=== PATIENT | female | born 1945 | race Caucasian/White ===

== ENCOUNTER → 2017-06-27 | Outpatient (CLI) | payer MEDICARE ==
--- NOTE | 2017-06-28 12:37 | MM ---
Reason for exam: screening (asymptomatic). Last mammogram was performed 1 year and 1 month ago. History: Patient is postmenopausal and had first child at age 38. Family history of breast cancer in maternal grandmother at age 60. Took hormonal contraceptives for 7 years. Physical Findings: A clinical breast exam by your physician is recommended on an annual basis and results should be correlated with mammographic findings. MG 3D Screening Mammo W/Cad Bilateral CC and MLO view(s) were taken. Prior study comparison: June 05, 2016, bilateral MG 3d screening mammo w/cad. September 22, 2014, bilateral MG screening mammo w CAD. The breast tissue is heterogeneously dense. This may lower the sensitivity of mammography. Benign calcifications in the left breast. No significant changes when compared with prior studies. ASSESSMENT: Benign, BI-RAD 2 RECOMMENDATION: Routine screening mammogram of both breasts in 1 year.
== END | disposition home or self-care (01) ==
LOC: RADMAMWWP 07:38
PROVIDERS: ATTEND Family Medicine
DX: Z12.31 Encounter for screening mammogram for malignant neoplasm of breast (principal)
CPT/HCPCS: 77063; G0202

== ENCOUNTER → 2017-11-29 | Outpatient (CLI) | payer MEDICARE ==
--- NOTE | 2017-11-29 11:45 | CT ---
EXAMINATION TYPE: CT abdomen pelvis wo con DATE OF EXAM: 11/29/2017 HISTORY: hematuria, UTI CT DLP: 724 mGycm. Automated Exposure Control for Dose Reduction was Utilized. TECHNIQUE: CT scan of the abdomen and pelvis is performed without oral or IV contrast. COMPARISON: NONE FINDINGS: Within the limitations of a non-contrast study, the following observations are made. LUNG BASES: There is linear scarring or atelectasis in the left lung base. LIVER/GB: No significant abnormality is appreciated. PANCREAS: No significant abnormality is seen. SPLEEN: No significant abnormality is seen. ADRENALS: No significant abnormality is seen. KIDNEYS: No renal stones or hydronephrosis is present bilaterally. No intraluminal calculus is seen i n bladder. No suspicious bladder wall thickening is present. Occasional right pelvic phlebolith is s een. BOWEL: Somewhat low-lying cecum is seen. There is no suspicious small or large bowel dilatation. Norm al-appearing appendix is seen medially from cecum. There is somewhat tortuous course of the transvers e colon. There is suspicious area of concentric wall thickening proximal to mid transverse colon seen axial image 37 and coronal image 32 in which apple core type mass or neoplasm cannot be excluded and follow-up is advised. GENITAL ORGANS: Anteverted uterus is seen. Suspect small amount of fluid in endometrial canal seen be st axial image 64. Consider pelvic ultrasound evaluation. LYMPH NODES: No greater than 1cm abdominal or pelvic lymph nodes are appreciated. OSSEOUS STRUCTURES: Underlying scoliotic curvature is present. There is moderate to severe multilevel spurring and disc space narrowing. Findings are most prominent at right L4-L5 level where there is s clerosis identified. There is disc calcification at L5 -L6 level. There is transitional-type L6 verte bra. OTHER: There is mild calcified plaque of aorta extending into branch vessels. IMPRESSION: 1. No renal stones or hydronephrosis is seen bilaterally. No suspicious bladder wall thickening or in traluminal calculus. 2. Attention to proximal to mid transverse colon, focal area of suspicious wall thickening is identif ied, this could reflect spasm but neoplasm cannot be excluded and follow-up colonoscopy advised if pacheco s not been performed in last 3 years.
== END | disposition home or self-care (01) ==
LOC: RADCTMAIN 10:58
PROVIDERS: ATTEND Family Medicine
DX: R10.9 Unspecified abdominal pain (principal)
CPT/HCPCS: 74176

== ENCOUNTER → 2017-12-10 | Outpatient (CLI) | payer MEDICARE ==
--- NOTE | 2017-12-10 10:00 | US ---
EXAMINATION TYPE: US transvaginal DATE OF EXAM: 12/10/2017 COMPARISON: US & CT CLINICAL HISTORY: R10.2 PELVIC AND PERINEAL PAIN. abn CT TECHNIQUE: Transvaginal (TV). Date of LMP: post menopausal EXAM MEASUREMENTS: Uterus: 4.5 x 2.1 x 3.3 cm Endometrial Stripe: 0.2 cm Right Ovary: 1.9 x 1.3 x 1.1 cm Left Ovary: 2.0 x 1.2 x 1.4 cm 1. Uterus: Anteverted difficult to visualize, shadowing seen, cystic structures in NERI and cervix 2. Endometrium: Difficult to visualize, however this does appear to be within normal limits 3. Right Ovary: wnl 4. Left Ovary: wnl 5. Bilateral Adnexa: wnl 6. Posterior cul-de-sac: no free fluid IMPRESSION: Findings are likely client service representative of cystic endometrial atrophy that can occur as part o f tamoxifen and associated endometrial change. No endometrial thickening.
== END | disposition home or self-care (01) ==
LOC: RADUSWWP 09:00
PROVIDERS: ATTEND Family Medicine
DX: R10.2 Pelvic and perineal pain (principal)
CPT/HCPCS: 76830

== ENCOUNTER → 2018-08-05 | Outpatient (CLI) | payer MEDICARE ==
--- NOTE | 2018-08-09 10:11 | MM ---
Reason for exam: screening (asymptomatic). Last mammogram was performed 1 year and 1 month ago. History: Patient is postmenopausal and had first child at age 38. Family history of breast cancer in maternal grandmother at age 60. Took hormonal contraceptives for 7 years. MG 3D Screening Mammo W/Cad Bilateral CC and MLO view(s) were taken. Prior study comparison: June 27, 2017, bilateral MG 3d screening mammo w/cad. June 05, 2016, bilateral MG 3d screening mammo w/cad. The breast tissue is heterogeneously dense. This may lower the sensitivity of mammography. There are benign-appearing bilatera calcifications. No suspicious abnormality. No significant changes when compared with prior studies. ASSESSMENT: Benign, BI-RAD 2 RECOMMENDATION: Routine screening mammogram of both breasts in 1 year.
== END ==
LOC: RADMAMWWP 07:03
PROVIDERS: ATTEND Family Medicine
DX: Z12.31 Encounter for screening mammogram for malignant neoplasm of breast (principal)
CPT/HCPCS: 77063; 77067

== ENCOUNTER → 2021-03-13 | Outpatient (CLI) | payer MEDICARE ==
--- NOTE | 2021-03-14 08:24 | US ---
EXAMINATION TYPE: US pelvic complete DATE OF EXAM: 03/13/2021 COMPARISON: US and CT 2017 CLINICAL HISTORY: R10.2 PELVIC AND PERINEAL PAIN. Intermittent left pelvic pain x couple months, grav carlos manuel 3, para 2, 1 TECHNIQUE: . Transabdominal sonographic images of the pelvis were acquired. Transvaginal sonographi c images were medically necessary to better assess the following anatomy: endometrium and ovaries Date of LMP: 23 years ago EXAM MEASUREMENTS: Uterus: 5.1 x 1.9 x 3.4 cm Endometrial Stripe: 0.2 cm Right Ovary: n/a Left Ovary: 1.7 x 1.3 x 1.2 cm 1. Uterus: mildly heterogeneous 2. Endometrium: wnl 3. Right Ovary: not seen due to overlying bowel gas 4. Left Ovary: wnl 5. Bilateral Adnexa: wnl 6. Posterior cul-de-sac: wnl Anteverted somewhat small size uterus correlates with patient's postmenopausal age. No free fluid. No rmal size left ovary seen on transvaginal investigation. Right ovary not identified. No adnexal noreen s present. IMPRESSION: No suspicious findings identified.
== END | disposition home or self-care (01) ==
LOC: RADUSWWP 16:21
PROVIDERS: ATTEND Family Medicine
DX: R10.2 Pelvic and perineal pain (principal)
CPT/HCPCS: 76830; 76856

== ENCOUNTER → 2021-03-15 | Outpatient (CLI) | payer MEDICARE ==
[2021-03-15 09:59] VITALS: BP 117/56; PULSE 43; RESP 16; TEMP 98
--- NOTE | 2021-03-15 11:23 | P.PN ---
Progress Note - Text Progress Note Date: 03/15/21 Chief Complaint: Left lower quadrant abdominal and pelvic pain worsening over the past 3 months. HPI: This is a 75-year-old 012 with an LMP of 2000. The patient states she has been having a very slight left lower quadrant abdominal discomfort over the past 3 years. She did not think very much of this because it was not there he painful, but during the past 3 months she states it has gradually become more noticeable. She says that it usually is not very bad early in the day, but as the day progresses it does seem to increase. The pain is described as a dull ache and is fairly constant. It is currently rated at a 2-3 out of 10 and at the end of most days when she has been very active during the day it can be a 6- 7 out of 10. When she was seen here in 2015, she stated that she had multiple sexual partners after becoming a in 2012. We discussed the importance of limiting sexual partners at that time and she states that after that visit, she has been with the same person during the past 5 years. She states during the first 3 years of the relationship she didn't have fairly frequent urinary tract infections. During the past 2 years she says they have been practicing better hygiene including showering prior to sexual intercourse and she does void before and after sexual intercourse. She states she has not had urinary tract infections during the past 2 years after making these changes. She believes she is her boyfriend only sexual partner at this time. The left lower quadrant and pelvic discomfort does not seem to be associated with any particular activity and does not seem to interfere with sexual intercourse. She denies any postmenopausal bleeding or fever. She has noticed a slight vaginal discharge in her underwear which she describes as a pale wheat color and mucousy. She does not notice any odor or itching. ROS: She denies fever, respiratory, or GI problems. Cardiac: She has been undergoing a cardiac workup because of symptoms of fatigue and feeling tired. She does feel the need to take naps which is unusual for her. She denies any urinary symptoms. PE: Blood pressure: 117/56, Height: 5 feet 5 inches, Weight: 134 pounds, Temperature: 98.0, Pulse: 43. Pulse oximeter 97%. This is a well developed, well nourished, white female who is alert and orientedx3, in no acute distress. Abdomen: Soft and nondistended. There are 2+ bowel sounds. There is mild left lower quadrant tenderness with deep palpation. There are no palpable masses. There is no rebound tenderness. There is no tenderness in the other quadrants other than the left lower quadrant. There are no unusual bulges in the groin area with Valsalva. Pelvic exam: Normal external genitalia with mild atrophy. Vagina reveals a small amount of grayish discharge without odor. The cervix is without lesions and does not appear inflamed. The cervix and vagina do reveal mild to moderate atrophy. The uterus is atrophic, mid positioned and nongravid size. The uterus is nontender. There are no palpable right adnexal masses or tenderness. There is no left adnexal mass palpable. There is minimal left adnexal tenderness with bimanual examination. Additional studies: Pelvic ultrasound was done on 03/13/[address] Lux. This was unremarkable. There were no adnexal masses. There was no free fluid. The left ovary was visualized and was normal size and within normal limits. The endometrial stripe was 0.2 cm which is normal. Impression: 1. 75-year-old menopausal female with increasing left lower quadrant and left pelvic pain with minimal to mild tenderness on examination today. Differential diagnosis will include left adnexal pain without significant ultrasound findings and this could include mild salpingitis. We will also include left inguinal hernia or GI discomfort such as diverticulosis or constipation. 2. Recent vaginal discharge which may or may not be related to the left lower quadrant and left pelvic pain. Differential diagnosis will include Nohemy vaginitis, bacterial vaginosis, trichomonas, GC, or physiologic discharge. 3. Fatigue, feeling tired and less energetic. Plan: 1. Affirm vaginitis panel was obtained from the noticeable vaginal discharge. 2. GC and Chlamydia testing was obtained from the cervix. 3. We will obtain recent blood testing that was done last month by Dr. Lux's office. She states thyroid testing was drawn at that time. She states the blood tests were done because of her fatigue and feeling tired. 4. If there is no findings of infection with the above testing, we will consider other options such as CT scan of the abdomen and pelvis to extend the imaging and this will include bowel and intestines. We can also consider referral for laparoscopic examination. 5. She was instructed to call or go to the emergency room if she is having severe pain, high fever or problems. Time spent with the patient: 35 minutes
[2021-03-16 14:02] LABS: Gardnerella Negative (Negative); Source Cervix; Trichomonas Negative (Negative)
== END ==
LOC: WWCWWP 09:11
PROVIDERS: ATTEND Obstetrics & Gynecology
DX: R10.32 Left lower quadrant pain (principal); R10.2 Pelvic and perineal pain; N89.8 Other specified noninflammatory disorders of vagina; R53.83 Other fatigue; Z88.2 Allergy status to sulfonamides
CPT/HCPCS: 87480; 87491; 87510; 87591; 87660

== ENCOUNTER → 2021-03-21 | Outpatient (CLI) | payer MEDICARE ==
[2021-03-21 14:48] LABS: Appearance,Urine Clear (Clear); Bacteria,Urine Rare /hpf; Bilirubin,Urine Negative (Negative); Blood,Urine Negative (Negative); Color,Urine Yellow; Glucose,Urine (UA) Negative (Negative); Ketones,Urine Negative (Negative); Leukocyte Esterase,Urine Large (Negative); Nitrite,Urine Negative (Negative); PH, Urine 5.5 (5.0-8.0); Protein,Urine Negative (Negative); RBC,Urine 2 /hpf (0-5); Squamous Epithelial Cell,Urine <1 /hpf (0-4); Urobilinogen,Urine <2.0 mg/dL (<2.0); WBC,Urine 25 /hpf (0-5)
[2021-03-22 16:40] LABS: African American GFR (CKD) 99.6 (60.0-200.0)
== END | disposition home or self-care (01) ==
LOC: LABWHC1 14:19
PROVIDERS: ATTEND Obstetrics & Gynecology
DX: R10.32 Left lower quadrant pain (principal); R10.2 Pelvic and perineal pain
CPT/HCPCS: 36415; 81001; 82565; 84520; 87086

== ENCOUNTER → 2021-03-22 | Outpatient (CLI) | payer MEDICARE ==
[2021-03-22 11:47] LABS: African American GFR (CKD) >90 (>60 ml/min/1.73 sqM); Blood Urea Nitrogen 12 mg/dL (7-17); Non-African American GFR(CKD) >90 (>60 ml/min/1.73 sqM)
--- NOTE | 2021-03-22 13:41 | CT ---
EXAMINATION TYPE: CT abdomen pelvis w con DATE OF EXAM: 03/22/2021 COMPARISON: 11/29/2017 HISTORY: 75-year-old female LLQ pain for months. TECHNIQUE: Contiguous axial scanning of the abdomen and pelvis following administration of 100 ml Iso desi 300 IV contrast. Delayed images through the kidneys and coronal/sagittal reconstructions perform ed. CT DLP: 404.7 mGycm Automated exposure control for dose reduction was used. FINDINGS: Heart upper limits of normal in size without pericardial effusion. Strandy atelectasis or scarring at the lateral basal right lobe. Also in the inferior lingula. No pleural effusion. Liver mildly enlarged at 18.8 cm. No focal liver lesion or biliary ductal dilatation. Portal venous s ystem is patent. Gallbladder, kidneys, right adrenal gland, spleen, and pancreas within normal limits. 1 cm nodule left adrenal gland appears to have been present in 2012 suggesting a benign adrenal adeno ma. No dilated small bowel, free fluid, or free air. Numerous mid abdominal mesenteric lymph nodes which are nonenlarged and borderline enlarged measuring up to 8 mm short axis. No dilated small bowel, free fluid, or free air. Oral contrast progressed to the lower descending col on. No significant stool burden. There is lower ending in proximal to mid sigmoid diverticulosis. Alicia ble to exclude mild pericolonic fat stranding along the proximal sigmoid colon, axial image 58 versus prominent pericolonic vessels. No significant wall thickening seen here. Bladder is urine distended. Uterus is anteverted. Prominent left periuterine varices and asymmetric d istention of the left gonadal vein. No abnormal fluid collection in the pelvis or pelvic lymphadenopa thy. Both ovaries are visualized. Bones: Mild degenerative change at the hips and pubic symphysis as well as the right SI joint. Advanc ed spondylotic change mid to lower lumbar spine with Baastrup's disease grade 1 anterolisthesis L2-L3 . Disc ossified complex and ligamentum flavum thickening L1-L2 causes at least mild spinal canal sten osis. Additional mild spinal canal stenoses at L3-L4 and L4-L5. IMPRESSION: 1. PROMINENT LEFT PARAUTERINE VARICES WITH ASYMMETRIC DISTENTION OF THE LEFT GONADAL VEIN. 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 CLINICALLY CORRELATE. 2. LOWER DESCENDING AND PROXIMAL TO MID SIGMOID DIVERTICULOSIS. THERE IS MILD FAT STRANDING ADJACENT TO THE PROXIMAL SIGMOID COLON FAVORED TO REPRESENT PROMINENT PERICOLONIC VESSELS RATHER THAN MILD INF LAMMATION THERE IS NO ABNORMAL WALL THICKENING. CLINICALLY CORRELATE FOR ANY POTENTIAL SYMPTOMS OF MILD ACUTE DIVERTICULITIS.
--- NOTE | 2021-03-22 14:12 | P.PN ---
Progress Note - Text Progress Note Date: 03/22/21 OUTPATIENT FOLLOW-UP NOTE TEST(S)/RESULTS: CT scan of the abdomen and pelvis done on 03/22/2021 shows left periuterine varices possibly consistent with pelvic congestion syndrome. Also lower descending to mid sigmoid diverticulosis is noted. There is no abnormal wall thickening. Urinalysis shows large leukocyte esterase and 25 WBCs. METHOD OF NOTIFICATION: The patient was notified by phone. PATIENT COMMENTS: DIAGNOSIS: Cystitis UTI. Nonspecific findings on CT scan as above. DISCUSSION: She will be treated with Macrobid 1 by mouth twice a day 7 days. We will await the urine culture with sensitivities. We will see how her left pelvic discomfort is after treatment. I have recommended that she abstain from intercourse at this time. PLAN: As above.
== END | disposition home or self-care (01) ==
LOC: RADCTMAIN 09:41
PROVIDERS: ATTEND Obstetrics & Gynecology
DX: K63.89 Other specified diseases of intestine (principal); K57.30 Diverticulosis of large intestine without perforation or abscess without bleeding; N32.89 Other specified disorders of bladder; R16.0 Hepatomegaly, not elsewhere classified
CPT/HCPCS: 82565; 84520; 74177; 36415; Q9967

== ENCOUNTER → 2021-11-08 | Outpatient (CLI) | payer MEDICARE ==
--- NOTE | 2021-11-08 12:02 | US ---
EXAMINATION TYPE: US abdomen limited DATE OF EXAM: 11/08/2021 COMPARISON: CT CLINICAL HISTORY: K43.9 VENTRAL HERNIA WITHOUT OBSTRUCTION. Pt states feeling a "bulge" left lower AB D x many months Assess for hernia at location of: Midline to left abdominal wall Lower ABD from midline to left and midline to right scanned. In area of pt's concern for bulge, no abnormality could be appreciated. Valsalva maneuver performed in multiple images, no abnormality/ ab dominal wall "break" visualized to suggest hernia IMPRESSION: No ultrasound evidence of abdominal wall hernia. Real-time scanning was performed by the biztalk software developer utilizing Valsalva and additional dynamic maneuve rs to assess for hernia. Images of the contralateral side were also acquired for direct comparison.
== END | disposition home or self-care (01) ==
LOC: RADUSWWP 11:15
PROVIDERS: ATTEND Family Medicine
DX: K43.9 Ventral hernia without obstruction or gangrene (principal)
CPT/HCPCS: 76705

== ENCOUNTER → 2021-11-16 | Outpatient (CLI) | payer MEDICARE ==
[2021-11-16 14:37] LABS: Basophils # (A) 0.03 X 10*3/uL (0.00-0.10); Basophils % (A) 0.5 %; Eosinophils % (A) 1.8 %; HCT 41.1 % (37.2-46.3); HGB 13.5 g/dL (12.0-15.0); Immature Grans, Automated 0.4 %; Lymphocytes # (A) 1.22 X 10*3/uL (0.90-5.00); Lymphocytes % (A) 22.3 %; MCH 29.6 pg (27.0-32.0); MCHC 32.8 g/dL (32.0-37.0); MCV 90.1 fL (80.0-97.0); Mean Platelet Volume 10.8 fL (9.5-12.2); Monocytes # (A) 0.51 X 10*3/uL (0.20-1.00); Monocytes % (A) 9.3 %; NRBC Per 100 WBC 0 /100 WBCS (0.0-0.0); Neutrophils # (A) 3.59 X 10*3/uL (1.80-7.70); Neutrophils % (A) 65.7 %; Platelet Count 208 X 10*3/uL (140-440); RBC 4.56 X 10*6/uL (4.10-5.20); RDW 13.1 % (11.5-14.5); WBC 5.47 X 10*3/uL (4.50-10.00)
[2021-11-16 16:50] LABS: ALT 33 U/L (8-44); AST 33 U/L (13-35); African American GFR (CKD) 101.3 (60.0-200.0); Albumin 4.6 g/dL (3.8-4.9); Alkaline Phosphatase 76 U/L (41-126); BUN/Creat Ratio 11.87 Ratio (12.00-20.00); Blood Urea Nitrogen 7.7 mg/dL (9.0-27.0); Calcium 9.5 mg/dL (8.7-10.3); Carbon Dioxide 24.8 mmol/L (20.0-27.5); Chloride 104 mmol/L (96-109); Creatine Kinase 111 U/L (26-186); Globulin 2.4 g/dL (1.6-3.3); Glucose 99 mg/dL (70-110); Magnesium 1.9 mg/dL (1.5-2.4); Non-African American GFR(CKD) 87.4 (60.0-200.0); Potassium 4.4 mmol/L (3.5-5.5); Sodium 140 mmol/L (135-145); Total Protein 7.1 g/dL (6.2-8.2); VLDL Calculation 16.62 mg/dL (5.00-40.00)
== END | disposition home or self-care (01) ==
LOC: LABWHC1 07:52
PROVIDERS: ATTEND Nurse Practitioner Adult Health
DX: I10 Essential (primary) hypertension (principal); I47.1 Supraventricular tachycardia; E78.5 Hyperlipidemia, unspecified
CPT/HCPCS: 36415; 80053; 80061; 82550; 83036; 83735; 84439; 84443; 85025

== ENCOUNTER → 2021-12-19 | Outpatient (CLI) | payer MEDICARE ==
--- NOTE | 2021-12-22 13:15 | MM ---
Reason for Exam: Screening (asymptomatic). Last mammogram was performed 2 year(s) and 4 month(s) ago. Patient History: Menarche at age 15. First Full-Term at age 34. Late child-bearing (after 30). Postmenopausal. Patient used Hormonal Contraceptives for 7 years. Maternal grandmother had breast cancer, age 60. Risk Values: Lashawn 5 year model risk: 2.4%. NCI Lifetime model risk: 5.6%. Film Views: Bilateral CC views were taken. Bilateral MLO views were taken. Prior Study Comparison: 06/05/2016 Bilateral Screening Mammogram, [facility]. 06/27/2017 Bilateral Screening Mammogram, [facility]. 08/05/2018 Bilateral Screening Mammogram, [facility]. 08/20/2019 Bilateral MG 3D screening mammo w/cad, [facility]. Tissue Density: The breast tissue is heterogeneously dense. This may lower the sensitivity of mammography. Findings: Analyzed By CAD. Some scattered benign-appearing round calcifications bilaterally are redemonstrated. Benign-appearing vascular calcifications in the right breast is again seen anteriorly. There is no suspicious group of microcalcifications or new suspicious mass in either breast. Overall Assessment: Benign, BI-RAD 2 Management: Screening Mammogram of both breasts in 1 year. A clinical breast exam by your physician is recommended on an annual basis and results should be correlated with mammographic findings. Electronically signed and approved by: Tanner Araiza M.D.
== END | disposition home or self-care (01) ==
LOC: RADMAMWWP 12:53
PROVIDERS: ATTEND Family Medicine
DX: Z12.31 Encounter for screening mammogram for malignant neoplasm of breast (principal); Z78.0 Asymptomatic menopausal state; Z80.3 Family history of malignant neoplasm of breast
CPT/HCPCS: 77063; 77067

== ENCOUNTER 2022-04-05 13:41 | Day surgery (SDC) | payer MEDICARE ==
[2022-04-04 13:43] VITALS: BMI 21.8
[2022-04-05] MEDS ORDERED: SODIUM CHLORIDE 0.9% 1,000 ML IV ONE (14:21)
[2022-04-05] MEDS ORDERED: NITROGLYCERIN OINT 1 INCH/GM PACKET TOPICAL ONE ×3 (16:44→17:57)
[2022-04-05] MEDS ORDERED: HYDROmorphone (PF) 1 MG/ML ONE (16:44)
[2022-04-05] MEDS ORDERED: MIDAZOLAM 2 MG/2 ML VIAL ONE (16:44)
[2022-04-05] MEDS ORDERED: fentaNYL (PF) 50 MCG/ML 2 ML AMP ONE (16:44)
[2022-04-05] MEDS ORDERED: ATROPINE SULFATE 0.1 MG/ML 10ML SYRINGE ONE (16:44)
[2022-04-05] MEDS ORDERED: PROPOFOL 10 MG/ML 20 ML VIAL IV ONE (16:44)
--- NOTE | 2022-04-05 16:49 | P.HPCAR ---
History of Present Illness This is Dr. Law dictating an H/P on this patient The patient was interviewed and examined IMPRESSION / ASSESSMENT: Symptomatic paroxysmal atrial fibrillation, drug refractory Recurrent palpitations Severe sinus bradycardia with heart rates down to the 20s Mild response to hyoscyamine PLAN: Pulmonary vein isolation/cryoablation of the pulmonary veins SVC ablation Left atrial septal ablation HPI Patient continues to complain of palpitations off and on she also complains of tightness. He has severe bradycardia TSH is normal she has no exacerbating factors OK and hypertension is well controlled She has dyslipidemia and is on statins ROS: No fever chills or rigors, no cough, phlegm or expectoration, no nausea, vomiting or diarrhea, no hematuria, dysuria, no musculoskeletal complaints, no strokes or seizures, no skin lesions. EXAMINATION: Afebrile, pulse rate 49 beats a minute Blood pressure 136/67 mmHg Breath sounds are clear no rhonchi no crackles Heart sounds are normal REVIEW OF LABS, ECG & MEDICAL DATA Atorvastatin, losartan and ELIQUIS and hyoscyamine Physical Exam Vitals: Vital Signs Temp Pulse Resp BP Pulse Ox 04/05/22 14:35 98.1 F 49 L 16 136/67 99 Intake and Output 04/05/22 04/05/22 04/05/22 06:59 14:59 22:59 Intake Total 400 Balance 400 Intake: IV 400 Other: Weight 58.3 kg Past Medical History Past Medical History: Hypertension Additional Past Medical History / Comment(s): SEE DR LAW'S HISTORY AND PHYSICAL FOR CARDIAC HISTORY,SLOW HEART RATE AT NIGHT History of Any Multi-Drug Resistant Organisms: None Reported Past Surgical History: Tonsillectomy Additional Past Surgical History / Comment(s): ARTHROSCOPIC RIGHT KNEE, COIL INSERTED INTO VEIN IN LEFT GROIN AREA AT [facility] Past Anesthesia/Blood Transfusion Reactions: No Reported Reaction Smoking Status: Never smoker - Past Family History Mother Family Medical History: No Reported History Physical Examination Vital Signs Temp Pulse Resp BP Pulse Ox 04/05/22 14:35 98.1 F 49 L 16 136/67 99 Intake and Output 04/05/22 04/05/22 04/05/22 06:59 14:59 22:59 Intake Total 400 Balance 400 Intake: IV 400 Other: Weight 58.3 kg Results Current Medications Generic Name Dose Route Start Last Admin Trade Name Freq PRN Reason Stop Dose Admin Sodium Chloride 1,000 mls @ 20 mls/hr 04/05/22 05:58 Saline 0.9% IV 05/05/22 05:59 .Q24H LAURA Intake and Output 04/05/22 04/05/22 04/05/22 06:59 14:59 22:59 Intake Total 400 Balance 400 Intake: IV 400 Other: Weight 58.3 kg Patient Weight 04/06/22 06:59 Weight 58.3 kg
[2022-04-05] MEDS ORDERED: LIDOCAINE 1% INJ 10MG/ML (30 ML VIAL-PF) SQ ONE (17:28)
[2022-04-05] MEDS ORDERED: HEPARIN SODIUM (1,000 UNIT/ML) 1,000 UNIT in SODIUM CHLORIDE 0.9% 1,000 ML IRRIGATION ONE (18:00)
[2022-04-05] MEDS ORDERED: ACETAMINOPHEN TAB 325 MG TAB PO PRN (19:51)
--- NOTE | 2022-04-05 19:58 | P.PRLE ---
RE: Orlando Sanabria Dear Leonarod Sanabria underwent a diagnostic EP study which revealed 1. Severe resting bradycardia while sleeping and she underwent successful ablation to address this At the end of the procedure her heart rate in deep sedation is 56 beats a minute The procedure. Documented heart rates of 20 beats a minute during sleep 2. Focal source of atrial fibrillation in the low lateral right atrial wall Successful ablation for this 3. Focal atrial tachycardia arising deep from the lower lateral tricuspid annulus This was a deep focus within the tricuspid annulus and she underwent successful ablation for this She does have PACs atrial couplets and triplets that are left over from the source since this was deep inside the valve tissue She will continue ELIQUIS for about 12 weeks and then she may stop it completely Thank you for entrusting me with the care of the patient Warm regards Sincerely Clement Law
--- NOTE | 2022-04-05 20:07 | P.EPPROC ---
- EP Procedure Note Electrophysiology Procedure Note: Diagnosis Paroxysms of atrial fibrillation symptomatic Paroxysms of atrial tachycardia Severe bradycardia in the 20s while sleeping Procedure Diagnostic EP study and successful ablation of 1. Focal source of atrial fibrillation in the lower lateral right atrial free wall 2. focal atrial tachycardia ablation in the lower lateral tricuspid annular tissue, 8 o'clock position 3. Successful ablation on the septal aspect of the SVC RA junction Patient was brought to the EP lab in a fasting state Written informed consent was obtained prior to the procedure IV atropine was administered, 2 mg Sinus rates were documented GA interval improved from 186-168 ms Atrial tachycardia became more prominent Pacing was performed from the high right atrium the coronary sinus and the right ventricle She will repeatedly go into an atrial tachycardia, slow atrial tachycardia that had a W-shaped P wave configuration in lead V1 This is consistent with an anterior right atrial tachycardia likely on the tricuspid annulus Inferior leads showed P waves that were flat to slightly negative Diagnoses EP study with stimulation from the high right atrium and coronary sinus Mapping of the His bundle area 3-D electro-anatomic mapping was performed The SVC/RA junction was targeted for ablation Fractionated electrograms were sought RF ablation was performed with good contact force and power At the end of the procedure during deep sleep, heart rates were 56 beats a minute Focal atrial tachycardia was mapped to the 8 o'clock position in the low lateral tricuspid annulus tissue This could be suppressed with deep pressure with contact force is above 40 g in the tricuspid area RF ablation was performed at the earliest site with deep negative unipolar signals Residual PACs atrial couplets and triplets from this site remained since this was a deep focus within the tricuspid annular tissue During mapping it is also evident that there was a focal source of atrial fibrillation in the low lateral right atrium RF ablation was applied in this region and thereafter atrial fibrillation could not be induced Intracardiac echo at the end of the procedure did not reveal any effusion Catheters were removed and Vascade closure applied successfully Patient tolerated the procedure well without any acute complications In a deeply sedated state at the end of the procedure, heart heart rate is 56 beats a minute, sinus mechanism
[2022-04-05] MEDS: SODIUM CHLORIDE 0.9% 1,000 ML IV SCH (20:38)
[2022-04-05] MEDS ORDERED: ATORVASTATIN 20 MG TAB PO SCH (21:00)
[2022-04-05] MEDS ORDERED: ACETAMINOPHEN IV (For NPO) 1,000 MG in EMPTY BAG 1 BAG IVPB ONE (21:00)
[2022-04-05 21:03] VITALS: RESP 18
[2022-04-05] MEDS: APIXABAN 5 MG TAB PO SCH (21:11)
--- NOTE | 2022-04-06 07:59 | P.DS ---
Providers Date of admission: 04/05/22 19:30 Attending physician: Clement Law Primary care physician: Leonardo Hernandez [facility] Course: Patient is doing very well No dizziness lightheadedness chest pain She is ambulating around the room Groins of healed well Heart sounds are normal no rub or gallop Breath sounds are clear No JVD Impression Focal atrial tachycardia tricuspid annulus 8 o'clock position successful ablation Focal source of atrial fibrillation low lateral right atrial wall him a status post successful ablation SVC/RA junction, ablation successful The lowest heart rate at night was 42 beats a minute Plan Continue ELIQUIS but since we did not perform the standard AF ablation, 6 weeks would be adequate Hold hyoscyamine for now Follow-up in one week Patient Condition at Discharge: Stable Plan - Discharge Summary Discharge Rx Participant: No New Discharge Prescriptions: No Action Latanoprost/Pf [Latanoprost 0.005% Eye Drop] 1 drop BOTH EYES HS RX: Losartan Potassium 100 mg PO DAILY Atorvastatin [Lipitor] 20 mg PO HS Apixaban [Eliquis] 5 mg PO BID Hyoscyamine Sulfate [Hyoscyamine Sulfate ER] 0.375 mg PO HS Discharge Medication List Atorvastatin [Lipitor] 20 mg PO HS 03/15/21 [History] RX: Losartan Potassium 100 mg PO DAILY 03/15/21 [History] Apixaban [Eliquis] 5 mg PO BID 04/04/22 [History] Latanoprost/Pf [Latanoprost 0.005% Eye Drop] 1 drop BOTH EYES HS 04/04/22 [History] Hyoscyamine Sulfate [Hyoscyamine Sulfate ER] 0.375 mg PO HS 04/05/22 [History]
[2022-04-06] MEDS: APIXABAN 5 MG TAB PO SCH (08:12)
[2022-04-06] MEDS: SODIUM CHLORIDE 0.9% 1,000 ML IV SCH (08:14)
[2022-04-06] MEDS ORDERED: LOSARTAN 50 MG TAB PO SCH (09:00)
[2022-04-06] MEDS ORDERED: COLCHICINE 0.6 MG EACH PO SCH (09:00)
[2022-04-06 09:39] VITALS: BP 129/61; PULSE 47; TEMP 97.8
== END 2022-04-06 10:23 | disposition home or self-care (01) ==
LOC: CATHEP 13:41 → 6NMEDSUR 19:30 → UNDOADMOB 19:30 → UNDODISOB 04-06 10:23 → CATHEP 04-06 10:23
PROVIDERS: ATTEND Internal Medicine Clinical Cardiac Electrophysiology
DX: I47.1 Supraventricular tachycardia (principal); I48.0 Paroxysmal atrial fibrillation; I10 Essential (primary) hypertension; I49.5 Sick sinus syndrome; E78.5 Hyperlipidemia, unspecified; Z20.822 Contact with and (suspected) exposure to COVID-19; T44.3X5A Adverse effect of other parasympatholytics [anticholinergics and antimuscarinics] and spasmolytics, initial encounter; Z98.890 Other specified postprocedural states
CPT/HCPCS: 93623; 93662; 93653; 87635; C1894; C1769 ×3; C1760; C1730 ×3; C1759; C1732; J2250; J2001; J0461; J3010; J1644; J1170; J0131; J2704; 93655; 93656; 93657

== ENCOUNTER → 2022-06-06 | Outpatient (CLI) | payer MEDICARE ==
--- NOTE | 2022-06-06 12:59 | US ---
EXAMINATION TYPE: US carotid duplex BILAT DATE OF EXAM: 06/06/2022 COMPARISON: NONE CLINICAL HISTORY: R09.89 bruit. TECHNIQUE: Carotid duplex ultrasound examination. Indirect Doppler criteria was utilized. FINDINGS: EXAM MEASUREMENTS: RIGHT: Peak Systolic Velocity (PSV) cm/sec ----- Right CCA: 70.8 ----- Right ICA: 79.3 ----- Right ECA: 75.8 ICA/CCA ratio: 1.1 RIGHT: End Diastole cm/sec ----- Right CCA: 18.8 ----- Right ICA: 24.8 ----- Right ECA: 10.6 LEFT: Peak Systolic Velocity (PSV) cm/sec ----- Left CCA: 85.8 ----- Left ICA: 67.0 ----- Left ECA: 99.5 ICA/CCA ratio: 0.8 LEFT: End Diastole cm/sec ----- Left CCA: 18.2 ----- Left ICA: 26.8 ----- Left ECA: 16.1 VERTEBRALS (direction of flow): Right Vertebral: Antegrade Left Vertebral: Antegrade Rhythm: Normal Grayscale images show no significant focal plaque at carotid bulb level. IMPRESSION: No hemodynamically significant stenosis in either internal carotid artery. Criteria for Assigning % of Stenosis / Diameter reduction (Estimation based on the indirect measurements of the internal carotid artery velocities (ICA PSV). 1. Normal (no stenosis)=ICA PSV < 125 cm/s: ratio < 2.0: ICA EDV<40 cm/s. 2. Less than 50% stenosis=ICA PSV < 125 cm/s: ratio < 2.0: ICA EDV<40 cm/s. 3. 50 to 69% stenosis=ICA PSV of 125 to 230 cm/s: ration 2.0 ? 4.0: ICA EDV 40-100 cm/s. 4. Greater than 70% stenosis to near occlusion= ICA PSV > 230 cm/s: ratio > 4.0: ICA EDV > 100 cm/s. 5. Near occlusion= ICA PSV velocities may be low or undetectable: variable ratio and ICA EDV. 6. Total occlusion=unable to detect flow.
== END | disposition home or self-care (01) ==
LOC: RADUSWWP 12:21
PROVIDERS: ATTEND Family Medicine
DX: R09.89 Other specified symptoms and signs involving the circulatory and respiratory systems (principal)
CPT/HCPCS: 93880

== ENCOUNTER 2023-12-02 13:56 | Day surgery (SDC) | payer MEDICARE ==
[2023-11-28 10:52] VITALS: BMI 22.1
[2023-12-02] MEDS: SODIUM CHLORIDE 0.9% 1,000 ML IV SCH (14:30)
[2023-12-02 14:32] VITALS: RESP 18
[2023-12-02] MEDS: SODIUM CHLORIDE 0.9% 500 ML 500 ML IV ONE ×2 (15:15→15:27)
[2023-12-02] MEDS ORDERED: LIDOCAINE 1% INJ 10MG/ML (20 ML MDV) ONE (15:34)
[2023-12-02] MEDS: LIDOCAINE 1% INJ 10MG/ML (20 ML MDV) SQ ONE (15:41)
--- NOTE | 2023-12-02 15:50 | P.EPPROC ---
- EP Procedure Note Electrophysiology Procedure Note: Loop monitor implant Primary physicians: Dr. Lux Distribution Center Manager: Dr. Law Indication: Sick sinus syndrome sinus pauses and recurrent PAT, evaluate for atrial fibrillation Patient was brought to the EP lab in a fasting state. Written informed consent was obtained prior to the procedure. The left pectoral area was prepped and draped per protocol. Intravenous antibiotic was administered preoperatively. A subcutaneous Loop monitor was implanted successfully and the wound was closed per protocol. The device was programmed to detect significant ifeanyi- arrhythmic and tachy-arrhythmic events, per protocol. Device and programming details: A-fib detection programming
--- NOTE | 2023-12-02 15:55 | P.PN ---
Progress Note - Text Dr. Law dictating on Mrs. Daniele Sanabria came in for implantation of a loop monitor today. She underwent successful implantation for reveal monitor. However her blood pressure was high and she brought in her home blood pressure readings which are also high however her blood pressure was high and she brought in her home blood pressure readings which are also high She is currently on losartan 100 mg p.o. daily and was recently started on amlodipine by Dr. Lux possibly 2.5 mg p.o. daily Plan I will send the following labs Serum metanephrines Free, serum aldosterone levels, plasma renin activity, calculate the ARR Serum cortisol and TSH levels and a BMP I will ask her to increase the dose of amlodipine to 5 mg p.o. daily and increase the dose of losartan to 150 mg daily, 1 in the morning 1 in the evening We will reevaluate her again in about 3 weeks or so If her blood pressure remains consistently elevated renal artery Dopplers will also be evaluated
[2023-12-02 16:51] VITALS: BP 198/87; PULSE 43
== END 2023-12-02 16:45 | disposition home or self-care (01) ==
LOC: CATHEP 13:56
PROVIDERS: ATTEND Internal Medicine Clinical Cardiac Electrophysiology
DX: I49.5 Sick sinus syndrome (principal); R55 Syncope and collapse; I48.91 Unspecified atrial fibrillation; E78.5 Hyperlipidemia, unspecified; I10 Essential (primary) hypertension; Z79.899 Other long term (current) drug therapy; Z88.2 Allergy status to sulfonamides; Z82.3 Family history of stroke
CPT/HCPCS: 33285; 82533; 84443; J0690; J2001

== ENCOUNTER → 2023-12-24 | Outpatient (CLI) | payer MEDICARE ==
[2023-12-24 20:00] LABS: Blood Urea Nitrogen 14.2 mg/dL (9.0-27.0); Carbon Dioxide 27.5 mmol/L (21.6-31.8); Chloride 101 mmol/L (96-109); Potassium 4.2 mmol/L (3.5-5.5); Sodium 140 mmol/L (135-145)
[2023-12-24 20:10] LABS: HCT 40.2 % (37.2-46.3); HGB 13.6 g/dL (12.0-15.0); MCH 30.2 pg (27.0-32.0); MCHC 33.8 g/dL (32.0-37.0); MCV 89.3 FL (80.0-97.0); Mean Platelet Volume 10.7 FL (9.5-12.2); NRBC Per 100 WBC 0 X 10*3/uL (0.00-0.01); Platelet Count 230 X 10*3/uL (140-440); WBC 6.81 X 10*3/uL (4.50-10.00)
== END | disposition home or self-care (01) ==
LOC: LABPAT 14:21
PROVIDERS: ATTEND Internal Medicine Clinical Cardiac Electrophysiology
DX: Z01.812 Encounter for preprocedural laboratory examination (principal)
CPT/HCPCS: 36415; 80051; 82565; 84520; 85027

== ENCOUNTER 2023-12-30 11:34 | Day surgery (SDC) | payer MEDICARE ==
[~2023-12-30 11:34] MED LIST: ceFAZolin 1 GM in SODIUM CHLORIDE 0.9% IRRIG BTL 250 ML IRRIGATION PRN
[2023-12-30] MEDS: SODIUM CHLORIDE 0.9% 500 ML 500 ML IV ONE (11:53)
[2023-12-30] MEDS ORDERED: LIDOCAINE 1% INJ 10MG/ML (20 ML MDV) ONE (14:54)
[2023-12-30] MEDS ORDERED: hydrALAZINE HCL 20 MG/ML 1 ML VIAL ONE (16:55)
[2023-12-30] MEDS ORDERED: MIDAZOLAM 2 MG/2 ML VIAL ONE (16:55)
[2023-12-30] MEDS ORDERED: fentaNYL (PF) 50 MCG/ML 2 ML AMP ONE (16:55)
[2023-12-30] MEDS: IOPAMIDOL-370 100ML BTL INJ ONE (17:12)
[2023-12-30] MEDS: LIDOCAINE 1% INJ 10MG/ML (20 ML MDV) SQ ONE (17:39)
[2023-12-30] MEDS: LIDOCAINE 1%-EPI 1:100,000 20 ML VIAL SQ ONE (17:48)
[2023-12-30] MEDS ORDERED: ACETAMINOPHEN TAB 325 MG TAB PO PRN (18:55)
--- NOTE | 2023-12-30 18:58 | P.EPPROC ---
- EP Procedure Note Electrophysiology Procedure Note: Diagnosis Symptomatic bradycardia, unprovoked, no triggering factors Sick sinus syndrome Procedure Dual-chamber pacemaker implantation with conduction system pacing (left bundle pacing) Left upper extremity venogram Details Patient was brought to the EP lab in a fasting state. Written informed consent was obtained prior to the procedure. Conscious sedation provided by YOKE [employer]TER. IV antibiotics administered. Local anesthesia administered. A 4 cm incision made in the pectoral area. Subfascial pocket made. Venous accesses obtained Venous sheaths placed. Leads placed in the right heart. 2 sets of pacing cables were used; one for backup temporary pacing and the other for assessment of current of injury and signal analysis. A 52 cm atrial pacing lead was first positioned in the RV apex for temporary pacing during mapping and conduction system pacing Thresholds were interrogated and backup high output pacing was provided This atrial lead was then removed from the right ventricle and later positioned in the right atrial appendage and the permanent lead A deflected sheath was prepped. A coronary sinus decapolar catheter was placed within this sheath. The catheter along with the sheath was then passed into the right heart, the catheter was prolapsed across the tricuspid valve, into the right ventricle and then further into the right ventricular outflow tract across the pulmonic valve into the pulmonary artery. This sheath was slid over this decapolar catheter into the RVOT. Thereafter the catheter last sheath assembly was withdrawn from the RVOT along the septum to the mid septal area. The sheath was appropriately to to map the right ventricular aspect of the septum. The decapolar catheter was withdrawn, the sheath flushed again and the screw-in pacing lead placed within the sheath. Further detailed unipolar pace-mapping of the septum was performed and once the appropriate based morphology was obtained on lead V1, the lead was screwed into the septum. The lead was screwed in 4-5 returns at a time while monitoring the current of injury, the pacing impedance changes and the paced QRS morphology. The stimulus to peak of V6 QRS was measured at each step. Once a QR or rSR pattern of paced QRS in lead V1 was obtained, a left bundle signal was sought. Impedance was measured and thresholds were measured. An impedance drop of 100-200 ohms but above 550 ohms was targeted along with an unchanged vector of the current of injury signal. The final positioning was based on the QRS morphology in lead V1 and a short stimulus to peak of the V6 QRS of less than 90 ms. The sheath was withdrawn, stability of the pacing lead deep in the septum was confirmed on POLLARD and GREENLANDIC views and the sheath was slipped and an adequate heel was provided for the lead. Unipolar and bipolar electrogram morphology obtained Atrial lead positioned in the right atrial appendage. 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 MADELEINE XT DR MRI pacemaker dual-chamber Dual-chamber pacemaker device connected to the leads and placed in the subfascial pocket Patient tolerated the procedure well without acute complications Pacemaker programming [id number], LV-RV offset 80 ms 50-130 bpm
--- NOTE | 2023-12-30 19:07 | P.EPPROC ---
- EP Procedure Note Electrophysiology Procedure Note: Procedure: Loop explant under sedation and local anesthesia. Diagnosis: Loop monitor removed at the time of pacemaker implantation Patient was brought to the EP lab in a fasting state. Written informed consent was obtained prior to the procedure. The subcutaneous device was successfully explanted under local anesthesia. Preoperative antibiotics were administered. The wound was closed in layers and dressed per protocol. Result: Successful loop monitor explantation.
[2023-12-30] MEDS: amLODIPine 5 MG TAB PO SCH (20:55)
[2023-12-30] MEDS: ATORVASTATIN 20 MG TAB PO SCH (20:55)
[2023-12-30] MEDS: TIMOLOL 0.5% OPHTH DROPS 5 ML BTL BOTH EYES SCH (20:56)
[2023-12-30] MEDS: METOPROLOL SUCCINATE (ER) 50 MG TAB.ER.24H PO SCH (20:56)
[2023-12-30] MEDS: SODIUM CHLORIDE 0.9% 1,000 ML IV SCH (21:01)
[2023-12-31] MEDS: ACETAMINOPHEN IV (For NPO) 1,000 MG in EMPTY BAG 1 BAG IVPB ONE (05:52)
[2023-12-31 07:25] VITALS: BP 172/87; PULSE 58; RESP 16; TEMP 97.6
--- NOTE | 2023-12-31 07:49 | XR ---
EXAMINATION TYPE: XR chest 2V DATE OF EXAM: 12/31/2023 COMPARISON: None HISTORY: 78-year-old female leak placement check TECHNIQUE: Frontal and lateral views FINDINGS: Left anterior chest wall pacemaker generator with right atrial and ventricular leads. Heart normal si ze. Pulmonary vasculature within normal limits. No consolidation or pleural effusion. No appreciable pneumothorax. Embolization coils projecting at the mid abdomen on the lateral view. IMPRESSION: Right atrial and right ventricular leads with left anterior chest wall pacemaker generator. No apprec iable pneumothorax.
[2023-12-31] MEDS: LOSARTAN 50 MG TAB PO SCH (08:29)
--- NOTE | 2023-12-31 12:36 | P.DS ---
Providers Attending physician: Clement Law Primary care physician: [facility] Course: Patient is doing well following dual-chamber pacemaker with conduction system pacing with left bundle pacing for sick sinus syndrome and AV node disease Pacemaker site is healed well The loop monitor was explanted Lungs are clear no rhonchi no crackles Heart sounds S1-S2 normal Breath sounds are clear Blood pressure 127/78 mmHg pulse rate in the 50s and 60s The pacemaker interrogation was within normal limits Chest x-ray was within normal limits Impression Hypertension with elevated blood pressure readings intermittently Atrial tachycardia History of atrial fibrillation Sick sinus syndrome History of AV node disease Plan Losartan 150 mg p.o. daily in the morning Increase amlodipine to 5 mg p.o. daily in the evening Add metoprolol succinate 50 mg p.o. daily in the morning Continue anticoagulation Follow-up in the device clinic in 1 week Patient Condition at Discharge: Good Plan - Discharge Summary Discharge Rx Participant: Yes New Discharge Prescriptions: New amLODIPine [Norvasc] 5 mg PO DAILY #90 tab Metoprolol Succinate [Toprol XL] 50 mg PO DAILY #90 tab Discontinued amLODIPine BESYLATE 2.5 mg PO HS No Action Latanoprost/Pf [Latanoprost 0.005% Eye Drop] 1 drop BOTH EYES HS Timolol (Unknown Dose) 1 dose BOTH EYES BID Co-Q 10 (Unknown Dose) 1 dose PO QAM Centrum Silver (Dose Unknown) 1 dose PO QAM Losartan Potassium 100 mg PO QAM Atorvastatin [Lipitor] 20 mg PO HS Preservision (Unknown Dose) 1 dose PO QAM Discharge Medication List Atorvastatin [Lipitor] 20 mg PO HS 03/15/21 [History] Losartan Potassium 100 mg PO QAM 03/15/21 [History] Latanoprost/Pf [Latanoprost 0.005% Eye Drop] 1 drop BOTH EYES HS 04/04/22 [History] Centrum Silver (Dose Unknown) 1 dose PO QAM 11/28/23 [History] Co-Q 10 (Unknown Dose) 1 dose PO QAM 11/28/23 [History] Preservision (Unknown Dose) 1 dose PO QAM 11/28/23 [History] Timolol (Unknown Dose) 1 dose BOTH EYES BID 11/28/23 [History] Metoprolol Succinate [Toprol XL] 50 mg PO DAILY #90 tab 12/30/23 [Rx] amLODIPine [Norvasc] 5 mg PO DAILY #90 tab 12/30/23 [Rx] Follow up Appointment(s)/Referral(s): Clement Law MD [STAFF PHYSICIAN] - 01/08/24 2:30 pm (Device clinic follow-up January 07 at 2:30pm Follow up with Dr. Law on April 01 at 3:45pm at the [address] [facility]) Activity/Diet/Wound Care/Special Instructions: PATIENT EDUCATION MATERIAL Instructions following a heart rhythm device implant. 1. Keep dressing DRY for 5 DAYS. You may cover the area with Saran or Cling Wrap, prior to a shower. 2. The dressing will be removed in the Device Clinic at [facility]. Absorbable sutures were used to close the wound. 3. Avoid raising the left arm above the shoulder level. 4 week restriction 4. Avoid arm movements, like backscratching, rubbing the head, or pulling on a cord. 4 weeks restriction 5. Gentle range of motion movements of the shoulder, closest to the incision should be performed to avoid a frozen shoulder. (Pendulum exercises of the shoulder) 6. The opposite arm may be used freely. 7. Avoid driving for 7 days. 8. Avoid activities such as golfing, swimming, weed whacking, lifting more than 10 pounds weight, bowling, gymnastics and weight training/lifting. (6 weeks restriction) 9. Activities such as wood chopping with an axe, pull-ups in the gymnasium, power lifting, arc-welding, being close to home induction cooktops will always be a problem. 10. Arm sling is only a reminder not to raise the arm above the head. You do not need to keep the arm completely immobilized. Your free to move the arm and use it and for normal activities. In case of any problems, please call [facility], [facility], @ [phone], Attention: Device Clinic Device clinic follow-up in 5 days Follow-up with primary engineering professionals in 2-3 months Increase amlodipine to 5 mg daily Metoprolol succinate 50 mg p.o. daily in the morning Continue losartan and atorvastatin Discharge Disposition: HOME SELF-CARE
== END 2023-12-31 11:14 | disposition home or self-care (01) ==
LOC: CATHEP 11:34 → 6NMEDSUR 18:50 → CATHEP 12-31 11:14
PROVIDERS: ATTEND Internal Medicine Clinical Cardiac Electrophysiology
DX: R00.1 Bradycardia, unspecified (principal); I49.5 Sick sinus syndrome; I47.19 Other supraventricular tachycardia; I10 Essential (primary) hypertension; I48.91 Unspecified atrial fibrillation; E78.5 Hyperlipidemia, unspecified; Z95.818 Presence of other cardiac implants and grafts; Z82.3 Family history of stroke; Z88.2 Allergy status to sulfonamides; Z79.01 Long term (current) use of anticoagulants; Z79.899 Other long term (current) drug therapy
CPT/HCPCS: 33208; 33286; 71046; C1769 ×2; C1730; C1887; C1892; C1898; C1785; J0690 ×2; J2001; Q9967

== ENCOUNTER → 2024-11-17 | Outpatient (CLI) | payer MEDICARE ==
[2024-11-17 15:14] VITALS: BP 118/75; PULSE 58; RESP 16; TEMP 98.5
--- NOTE | 2024-11-17 16:16 | P.HPOB ---
History of Present Illness H&P Date: 11/17/24 Chief Complaint: The patient is here for her routine gynecologic exam. This is a 79-year-old -0-1-2 with an LMP of 2000. Patient is here to reestablish with this office. Her last Pap smear was in 2016. This was negative with a negative high-risk HPV testing. She states she felt a strong need to have this exam done since her friend ended up having a Pap smear problem recently. The patient is without gynecologic complaints. She denies any postmenopausal bleeding. It has been several years since her last pelvic exam. She is sexually active and enjoys sexual activity. Review of Systems The patient's weight has been stable over the last year. She denies respiratory, cardiac, or G.I. problems. Past Medical History Past Medical History: GERD/Reflux, Hyperlipidemia, Hypertension Additional Past Medical History / Comment(s): Pacemaker placed for bradycardia. 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 Cryotherapy of the cervix in her 40s. History of Any Multi-Drug Resistant Organisms: None Reported Past Surgical History: Cardiac Ablation, Pacemaker, Tonsillectomy Additional Past Surgical History / Comment(s): ARTHROSCOPIC RIGHT KNEE, COIL INSERTED INTO VEIN IN LEFT GROIN AREA AT [facility] for pelvic congestion syndrome. Cardiac ablation in 2021. Colonoscopy 2021(next after 3yr). Past Anesthesia/Blood Transfusion Reactions: No Reported Reaction Additional Past Anesthesia/Blood Transfusion Reaction / Comment(s): Hx of Vertigo. No hx of blood transfusion. Past Psychological History: No Psychological Hx Reported Smoking Status: Never smoker Past Alcohol Use History: Daily (1 drink per day is typical.) Additional Past Alcohol Use History / Comment(s): 1 DRINK A DAY Past Drug Use History: None Reported Additional History: She is a . She has been seeing her boyfriend for several years and he now lives in [place]. - Past Family History Mother Family Medical History: Hyperlipidemia, Hypertension Additional Family Medical History / Comment(s): Stroke. . Maternal grandmother had breast cancer. Father Family Medical History: Dementia Additional Family Medical History / Comment(s): . Medications and Allergies Home Medications Medication Instructions Recorded Confirmed Type Atorvastatin [Lipitor] 20 mg PO HS 03/15/12/25/23 History Latanoprost/Pf [Latanoprost 0.005% 1 drop BOTH EYES HS 04/04/22 12/25/23 History Eye Drop] Centrum Silver (Dose Unknown) 1 dose PO QAM 11/28/23 12/25/23 History Co-Q 10 (Unknown Dose) 1 dose PO QAM 11/28/23 12/25/23 History Preservision (Unknown Dose) 1 dose PO QAM 11/28/23 12/30/23 History Timolol (Unknown Dose) 1 dose BOTH EYES BID 11/28/23 12/30/23 History amLODIPine [Norvasc] 5 mg PO DAILY #90 tab 12/30/23 Rx Valsartan 320 mg PO DAILY 11/17/24 11/17/24 History Allergies Allergy/AdvReac Type Severity Reaction Status Date / Time Sulfa (Sulfonamide Allergy Mild Unknown Unverified 11/17/24 15:04 Antibiotics) Exam Vital Signs Temp Pulse Resp BP Pulse Ox 11/17/24 15:08 98.5 F 58 L 16 118/75 98 Intake and Output 11/17/24 11/17/24 11/17/24 06:59 14:59 22:59 Other: Weight 60.328 kg Height 5 feet 4 inches, weight 133 pounds, BMI 22.8. This is a well-developed well-nourished white female who is alert and oriented times 3 in no acute distress. HEENT: Within normal limits. NECK: Supple without mass or thyromegaly. CHEST AND LUNGS: Clear to auscultation. HEART: Regular rate and rhythm. BREASTS: Are without mass or discharge. There is is an area of scabbed over lesions on the skin near the tail of the breast entering the axilla. She states this was shingles that is near resolved. AXILLARY EXAM: Negative for adenopathy. BACK: Negative for CVA tenderness. ABDOMEN: Soft, nontender, without palpable masses. PELVIC EXAM: Normal external genitalia with mild to moderate atrophy. Cervix and vagina appear normal with moderate atrophy. There is no unusual discharge. There is no evidence of prolapse. The uterus is midposition, nongravid size and nontender. There are no palpable adnexal masses or tenderness. RECTAL EXAM: Rectovaginal exam is negative for mass or tenderness and is negative for occult blood. EXTREMITIES: Nontender. IMPRESSION: 1. 79-year-old menopausal female with normal gynecologic exam. 2. Previous cryotherapy of the cervix probably more than 25 years ago. PLAN: 1. Pap smear cotest was performed. Her last prior Pap smear cotest was on 11/01/2015 and was negative. If this 1 is negative we will consider discontinuing Pap smears. 2. Self breast awareness was discussed with the patient. We have also discussed symptoms associated with inflammatory breast cancer. 3. Her last mammogram done at [facility] was on 12/19/2021 and was benign. She thinks she may have had 1 done since then. She will check her adi rds. The order slip was given to the patient for another mammogram. If she had 1 done within the last year, she will repeated after 1 year. 4. Osteoporosis prevention was discussed. I have stressed the importance of adequate calcium, vitamin D and regular exercise. Recommended amounts of calcium and vitamin D were also discussed. She believes it has been more than 5 years since her last bone density test. I have recommended repeating this. The order slip was given to the patient for this. 5. She believes she will be due for another colonoscopy in the upcoming year. She will arrange this through her PCP. 6. I have stressed the importance of continuing to have pelvic exams done at least every 2 years. The patient was advised to return in 1-2 years for her well woman examination.
== END ==
LOC: WWCWWP 14:38
PROVIDERS: ATTEND Obstetrics & Gynecology
DX: Z01.419 Encounter for gynecological examination (general) (routine) without abnormal findings (principal); Z78.0 Asymptomatic menopausal state; Z88.2 Allergy status to sulfonamides